=== PATIENT | male | born 1950 | race Caucasian/White ===

== ENCOUNTER 2025-06-03 16:02 | Observation (INO) ==
[2025-06-03] MEDS: ONDANSETRON 4 MG/2 ML VIAL IV ONE (16:27)
[2025-06-03] MEDS: 0.9 % SODIUM CHLORIDE 1,000 ML IV ONE (16:27)
[2025-06-03 16:46] LABS: Basophils # (Auto) 0.03 K/mcL (0.00-0.30); Basophils % (Auto) 0.3 % (0.0-2.0); Eosinophils # (Auto) 0.51 K/mcL (0.00-0.70); Eosinophils % (Auto) 5.4 % (0.0-7.0); Hematocrit 39.1 % (40.1-51.0); Hemoglobin 12.7 g/dL (13.7-17.5); Lymphocytes # (Auto) 1.80 K/mcL (1.50-4.80); Lymphocytes % (Auto) 19.1 % (15.5-49.0); Mean Corpuscular HGB Conc 32.5 g/dL (31.0-36.0); Monocytes # (Auto) 0.94 K/mcL (0.10-0.90); Monocytes % (Auto) 10.0 % (1.0-12.0); Neutrophils % (Auto) 65.0 % (38.0-78.0); Platelet Count 219 K/mcL (140-440); RBC 4.52 M/mcL (4.63-6.08); WBC 9.4 K/mcL (4.5-11.0)
[2025-06-03 17:09] LABS: ALT/SGPT 11 U/L (<40); AST/SGOT 18 U/L (<40); Albumin 4.1 gm/dL (3.2-5.2); Albumin/Globulin Ratio 1.5 (1.0-2.3); Alkaline Phosphatase 62 U/L (39-117); Anion Gap 10.0 (8.0-16.0); Bilirubin,Total 0.7 mg/dL (0.1-1.0); Blood Urea Nitrogen 18 mg/dL (8-23); Calcium 8.7 mg/dL (8.6-10.4); Carbon Dioxide 27 mmol/L (22-30); Chloride 99 mmol/L (96-108); Globulin 2.8 gm/dL (2.2-3.7); Glucose 108 mg/dL (70-105); Potassium 3.2 mmol/L (3.3-5.1); Sodium 136 mmol/L (133-145)
[2025-06-03] MEDS: HYDROmorphone 0.5 MG/0.5 ML SYRINGE IV ONE (17:10)
[2025-06-03] MEDS ORDERED: ONDANSETRON 4 MG/2 ML VIAL IV PRN (17:35)
[2025-06-03] MEDS: PIPERACILLIN SODIUM/TAZOBACTAM 4.5 GM in DEXTROSE 5% IN WATER 50 ML IV ONE (17:49)
[2025-06-03] MEDS: 0.9 % SODIUM CHLORIDE 1,000 ML IV SCH (18:34)
[2025-06-03] MEDS: HYDROmorphone 0.5 MG/0.5 ML SYRINGE IV PRN (18:34)
[2025-06-03] MEDS: 0.9 % SODIUM CHLORIDE 10 ML SYRINGE IV SCH (20:54)
[2025-06-03] MEDS: ACETAMINOPHEN 1,000 MG/100 ML BAG IV SCH (21:05)
[2025-06-04] MEDS: ACETAMINOPHEN 1,000 MG/100 ML BAG IV SCH ×2 (04:06→10:35)
[2025-06-04 04:34] LABS: Basophils # (Auto) 0.01 K/mcL (0.00-0.30); Basophils % (Auto) 0.1 % (0.0-2.0); Eosinophils # (Auto) 0.15 K/mcL (0.00-0.70); Eosinophils % (Auto) 1.1 % (0.0-7.0); Hematocrit 43.1 % (40.1-51.0); Hemoglobin 13.4 g/dL (13.7-17.5); Lymphocytes # (Auto) 1.30 K/mcL (1.50-4.80); Lymphocytes % (Auto) 9.6 % (15.5-49.0); Mean Corpuscular HGB Conc 31.1 g/dL (31.0-36.0); Monocytes # (Auto) 1.41 K/mcL (0.10-0.90); Monocytes % (Auto) 10.4 % (1.0-12.0); Neutrophils % (Auto) 78.6 % (38.0-78.0); Platelet Count 191 K/mcL (140-440); RBC 4.78 M/mcL (4.63-6.08); WBC 13.6 K/mcL (4.5-11.0)
[2025-06-04 04:59] LABS: ALT/SGPT 70 U/L (<40); AST/SGOT 61 U/L (<40); Albumin 3.7 gm/dL (3.2-5.2); Albumin/Globulin Ratio 1.1 (1.0-2.3); Alkaline Phosphatase 126 U/L (39-117); Anion Gap 15.0 (8.0-16.0); Bilirubin,Total 1.8 mg/dL (0.1-1.0); Blood Urea Nitrogen 15 mg/dL (8-23); Calcium 8.5 mg/dL (8.6-10.4); Carbon Dioxide 16 mmol/L (22-30); Chloride 101 mmol/L (96-108); Globulin 3.3 gm/dL (2.2-3.7); Glucose 92 mg/dL (70-105); Potassium 3.8 mmol/L (3.3-5.1); Sodium 132 mmol/L (133-145)
[2025-06-04] MEDS ORDERED: fentaNYL 100 MCG/2 ML VIAL ONE (07:55)
[2025-06-04] MEDS ORDERED: SUGAMMADEX SODIUM 200 MG/2 ML VIAL IV ONE (07:56)
[2025-06-04] MEDS ORDERED: MAGNESIUM SULFATE 2 GM/50 ML BAG IV ONE (07:56)
[2025-06-04] MEDS ORDERED: ROCURONIUM 10 MG/ML ML IV ONE ×2 (07:56→09:14)
[2025-06-04] MEDS ORDERED: PROPOFOL 200 MG/20 ML VIAL IV ONE (07:56)
[2025-06-04] MEDS ORDERED: DEXAMETHASONE 10 MG/ML VIAL ONE (07:56)
[2025-06-04] MEDS ORDERED: FAMOTIDINE/PF 20 MG/2 ML VIAL IV ONE (07:56)
[2025-06-04] MEDS ORDERED: ONDANSETRON 4 MG/2 ML VIAL ONE (07:56)
[2025-06-04] MEDS ORDERED: GLYCOPYRROLATE 0.2 MG/ML VIAL IV ONE ×2 (07:56→07:57)
[2025-06-04] MEDS ORDERED: ePHEDrine 50 MG/5 ML SYRINGE (ANEST) IV ONE (07:57)
[2025-06-04] MEDS ORDERED: HYDROmorphone 0.5 MG/0.5 ML SYRINGE ONE (08:28)
[2025-06-04] MEDS ORDERED: DEXMEDETOMIDINE HCL 200 MCG/2 ML VIAL ONE (09:19)
[2025-06-04] MEDS ORDERED: fentaNYL 100 MCG/2 ML VIAL IV PRN (09:40)
[2025-06-04] MEDS ORDERED: IPRATROPIUM/ALBUTEROL 3 ML AMPUL.NEB NEB PRN (09:40)
[2025-06-04] MEDS ORDERED: BENZOCAINE/MENTHOL 1 LOZENGE PO PRN (09:40)
[2025-06-04] MEDS ORDERED: ONDANSETRON 4 MG/2 ML VIAL IV PRN ×2 (09:40→10:17)
[2025-06-04] MEDS: BUPIVACAINE 0.25% 50 ML VIAL IJ ONE (10:12)
[2025-06-04] MEDS: IOVERSOL 50 ML VIAL IJ ONE (10:12)
[2025-06-04] MEDS ORDERED: ALBUTEROL SULFATE 2.5 MG/3 ML NEBULIZER NEB PRN (10:17)
[2025-06-04] MEDS: METHOCARBAMOL 1,000 MG/10 ML VIAL IV PRN (10:29)
[2025-06-04] MEDS: HYDROmorphone 0.5 MG/0.5 ML SYRINGE IV PRN (10:35)
[2025-06-04] MEDS: PIPERACILLIN SODIUM/TAZOBACTAM 3.375 GM in DEXTROSE 5% IN WATER 50 ML IV ONE (11:22)
[2025-06-04] MEDS: LACTATED RINGERS 1,000 ML IV SCH (12:27)
[2025-06-04] MEDS: 0.9 % SODIUM CHLORIDE 1,000 ML IV SCH (12:27)
[2025-06-04] MEDS: 0.9 % SODIUM CHLORIDE 10 ML SYRINGE IV SCH (14:21)
[2025-06-04] MEDS: PIPERACILLIN SODIUM/TAZOBACTAM 3.375 GM in DEXTROSE 5% IN WATER 100 ML IV SCH (14:42)
[2025-06-04] MEDS: DOCUSATE SODIUM 100 MG CAPSULE PO SCH (21:12)
[2025-06-04] MEDS: SENNOSIDES 1 TABLET PO SCH (21:12)
[2025-06-05 06:30] LABS: ALT/SGPT 61 U/L (<40); AST/SGOT 48 U/L (<40); Albumin 3.2 gm/dL (3.2-5.2); Albumin/Globulin Ratio 1.3 (1.0-2.3); Alkaline Phosphatase 76 U/L (39-117); Anion Gap 9.0 (8.0-16.0); Bilirubin,Total 1.1 mg/dL (0.1-1.0); Blood Urea Nitrogen 16 mg/dL (8-23); Calcium 7.8 mg/dL (8.6-10.4); Carbon Dioxide 24 mmol/L (22-30); Chloride 99 mmol/L (96-108); Globulin 2.4 gm/dL (2.2-3.7); Glucose 113 mg/dL (70-105); Potassium 3.5 mmol/L (3.3-5.1); Sodium 132 mmol/L (133-145)
[2025-06-05 06:38] LABS: Basophils # (Auto) 0.02 K/mcL (0.00-0.30); Basophils % (Auto) 0.1 % (0.0-2.0); Eosinophils # (Auto) 0 K/mcL (0.00-0.70); Eosinophils % (Auto) 0 % (0.0-7.0); Hematocrit 32.4 % (40.1-51.0); Hemoglobin 10.6 g/dL (13.7-17.5); Lymphocytes # (Auto) 0.66 K/mcL (1.50-4.80); Lymphocytes % (Auto) 4.4 % (15.5-49.0); Mean Corpuscular HGB Conc 32.7 g/dL (31.0-36.0); Monocytes # (Auto) 0.99 K/mcL (0.10-0.90); Monocytes % (Auto) 6.6 % (1.0-12.0); Neutrophils % (Auto) 88.7 % (38.0-78.0); Platelet Count 183 K/mcL (140-440); RBC 3.73 M/mcL (4.63-6.08); WBC 15.0 K/mcL (4.5-11.0)
== END 2025-06-05 13:00 | disposition home or self-care (01) ==
LOC: ED 16:02 → MEDSUR 16:02
PROVIDERS: ADMIT Surgery; ATTEND Surgery